=== PATIENT | female | born 1995 | race Two or more races ===

== ENCOUNTER 2019-10-17 06:29 | Emergency (ER) | payer OTHER, SELFPAY ==
[~2019-10-17] VITALS: Ht 160 cm; Wt 76.2 kg
[2019-10-17 06:33] VITALS: BP 125/78
--- NOTE | 2019-10-17 07:27 | NUR ---
PROVIDER ENTERED ROOM AND PT STATED "I'M JUST GOING TO GO HOME" AND LEFT WITHOUT BEING SEEN.
== END 2019-10-17 07:29 | disposition home or self-care (01) ==
LOC: ED 07:10
DX: M79.662 Pain in left lower leg (principal)
CPT/HCPCS: 99281

== ENCOUNTER 2020-08-16 16:55 | Emergency (ER) | payer OTHER ==
[~2020-08-16] VITALS: Ht 152.4 cm; Wt 76.8 kg
--- NOTE | 2020-08-16 18:04 | NUR ---
UA CUP GIVEN
[2020-08-16 18:45] LABS: HCG UR SG 1.026 (1.003-1.030)
--- NOTE | 2020-08-16 19:16 | NUR ---
First contact with patient: patient changing into gown and headed to xray. Patient ambulatory with a steady gait.
--- NOTE | 2020-08-16 19:39 | NUR ---
Patient returned from xray; ERP in room.
[2020-08-16] MEDS ORDERED: LIDODERM 5% PATCH TD ONE ×2 (19:44→20:00)
[2020-08-16] MEDS ORDERED: KETOROLAC 30 MG/1 ML ONE (19:44)
[2020-08-16] MEDS ORDERED: DIAZEPAM 5 MG TABLET ONE (19:44)
[2020-08-16 19:55] VITALS: BP 110/71
[2020-08-16] MEDS ORDERED: KETOROLAC 30 MG/1 ML IM ONE (20:00)
[2020-08-16] MEDS ORDERED: DIAZEPAM 5 MG TABLET PO ONE (20:00)
[2020-08-16 20:32] LABS: MICROSCOPIC INDICATED
[2020-08-16] MEDS ORDERED: NEOSPORIN OINT. PKT 1 PACKET ONE ×2 (20:37→20:38)
[2020-08-16] MEDS ORDERED: SODIUM CHLORIDE FLUSH 10ML SYR IVF ONE (21:00)
[2020-08-16] MEDS ORDERED: SODIUM CHLORIDE 0.9% 1,000ML IVBOLUS ONE (21:00)
[2020-08-16 21:19] LABS: BASOPHILS % (AUTO) 0 % (0-1); EOSINOPHILS % (AUTO) 1 % (1-7); LYMPHOCYTES % (AUTO) 14 % (22-44); MEAN CORPUSCULAR HEMOGLOBIN 31.4 pg (27.0-34.8); MEAN CORPUSCULAR HGB CONC 33.7 g/dL (32.4-35.8); MEAN PLATELET VOLUME 8.2 fL (7.4-10.4); MONOCYTES % (AUTO) 5 % (2-9); NEUTROPHILS % (AUTO) 80 % (42-75); PLATELET COUNT 315 x10^3/uL (130-400); RED BLOOD COUNT 4.44 x10^6/uL (3.82-5.3); RED CELL DISTRIBUTION WIDTH 13.6 % (9.6-15.2)
[2020-08-16 21:23] LABS: MD NO
[2020-08-16 21:30] LABS: ANION GAP 6 mmol/L (5-15); CALCIUM 8.8 mg/dL (8.5-10.1); CHLORIDE 108 mmol/L (98-107); CREATININE 0.67 mg/dL (0.55-1.02)
[2020-08-16 21:32] LABS: CREATINE KINASE, TOTAL 106 U/L (26-192)
== END 2020-08-16 22:21 ==
LOC: ED 21:22
DX: S16.1XXA Strain of muscle, fascia and tendon at neck level, initial encounter (principal); S09.90XA Unspecified injury of head, initial encounter; S00.511A Abrasion of lip, initial encounter; S20.319A Abrasion of unspecified front wall of thorax, initial encounter; M54.5 Low back pain; R55 Syncope and collapse; R94.31 Abnormal electrocardiogram [ECG] [EKG]; V86.59XA Driver of other special all-terrain or other off-road motor vehicle injured in nontraffic accident, initial encounter; Y93.89 Activity, other specified; Y92.89 Other specified places as the place of occurrence of the external cause; Y99.8 Other external cause status
CPT/HCPCS: 36415; 70450; 72072; 72110; 72125; 80048; 81001; 81025; 82550; 85025; 87086; 93005; 96372; 99285; J1885